=== PATIENT | male | born 1960 | race Caucasian/White ===

== ENCOUNTER 2018-05-10 06:16 | Day surgery (SDC) | payer BC, OTHER ==
[2018-05-10] MEDS ORDERED: LIDOCAINE 2% MDV (20MG/ML) 20ML VIAL IV ONE (06:17)
[2018-05-10] MEDS ORDERED: PROPOFOL 10 MG/ML VIAL IV ONE (06:17)
--- NOTE | 2018-05-14 08:50 | Operative Note ---
DATE OF SURGERY: 05/10/2018 SURGEON: Yisel Fonseca MD OPERATION: COLONOSCOPY. INDICATIONS: This is a 57-year-old male with history of colon polyps who presented for surveillance colonoscopy. POSTOPERATIVE DIAGNOSES: 1. A 3 mm sessile polyp in the rectum that was removed by cold biopsy forceps. 2. Otherwise normal colon and terminal ileal mucosa. ANESTHESIA: Sedation is per Anesthesia. Pulse oximetry was monitored throughout the procedure to maintain O2 saturation of 90% or greater. Supplemental oxygen was administered via nasal cannula. Cardiac and vital signs were monitored throughout the duration of the procedure, and they were stable. The procedure of colonoscopy and risks and alternatives of the procedure, including the risk of bleeding and perforation, among others, were explained to the patient who voiced understanding and agreed to have the procedure done. Physical examination was performed, and the patient was found stable for sedation. PROCEDURE: The patient was placed in the left lateral position. Sedation was initiated. A digital rectal exam was performed and showed some mild external hemorrhoids with no palpable rectal masses. An Olympus PCF-180AL colonoscope was then inserted into the rectum under direct visualization. It was advanced to the cecum without difficulty. The ileocecal valve and appendiceal orifice were identified and photographed. The colonic mucosa was carefully examined upon introduction of the colonoscope. There were no lesions noted. The ileocecal valve was intubated and terminal ileal mucosa was inspected for about 10 cm and it appeared normal. The colonoscope was then withdrawn while carefully examining the colonic mucosal surfaces. No lesions were noted. In the rectum, retroflexion was performed and grade 1 internal hemorrhoids were noted and a 3 mm sessile polyp was noted and was removed by cold biopsy forceps. The colonoscope was then withdrawn and the procedure was terminated. The patient tolerated the procedure well without any immediate complications. The patient remained with stable vital signs and was transferred to the recovery room. RECOMMENDATIONS: 1. The patient should be on a high-fiber diet. 2. The patient is to have a repeat colonoscopy for surveillance in 5 years. Thank you for allowing me to participate in the care of your patient. CC: Dr. Patel HANKS
== END 2018-05-10 08:15 | disposition home or self-care (01) ==
LOC: HOP 06:16
PROVIDERS: ATTEND Internal Medicine Gastroenterology
DX: Z12.11 Encounter for screening for malignant neoplasm of colon (principal); Z86.010 Personal history of colon polyps; K62.1 Rectal polyp; I10 Essential (primary) hypertension; E11.9 Type 2 diabetes mellitus without complications

== ENCOUNTER 2018-11-03 16:33 | Emergency (ER) | payer BC ==
[2018-11-03 17:39] LABS: URINE APPEARANCE CLEAR; URINE BILIRUBIN NEGATIVE (NEGATIVE); URINE BLOOD NEGATIVE (NEGATIVE); URINE COLOR YELLOW; URINE GLUCOSE (UA) NEGATIVE (NEGATIVE); URINE KETONE NEGATIVE (NEGATIVE); URINE LEUKOCYTE ESTERASE NEGATIVE (NEGATIVE); URINE NITRITE NEGATIVE (NEGATIVE); URINE PROTEIN NEGATIVE (NEGATIVE); URINE UROBILINOGEN 0.2 E.U./dL (0.20 - 1.00)
[2018-11-03] MEDS ORDERED: KETOROLAC 30 MG/ML VIAL IM ONE (18:30)
--- NOTE | 2018-11-03 18:30 | Emergency Department Record ---
History of Present Illness - General Chief Complaint: Abdominal Pain Stated Complaint: LOWER RT ABN PAIN Time Seen by Provider: 11/03/18 18:21 Source: Patient Mode of Arrival: Ambulatory Limitations: No limitations - History of Present Illness Initial Comments: The patient is here due to a one week hx of R groin pain. The pain is worse with any movement and bending. He denies any injury or upper AP or testicular issues. The patient has had his GB removed in the past and that is his only abdominal surgery. MD Complaint: Abdominal pain Onset/Timin -: Days(s) Severity: Moderate Severity scale (1-10): 7 Quality: Aching, Cramping Consistency: Constant, Intermittent - Related Data Home Medications Medication Instructions Recorded Confirmed Last Taken Lisinopril 10 mg PO DAILY 11/03/18 11/03/18 1 Day Ago ~11/02/18 Metformin HCl [Glucophage] 1,000 mg PO DAILY 11/03/18 11/03/18 1 Day Ago ~11/02/18 Previous Rx's Medication Instructions Recorded Naproxen [Naprosyn] 500 mg PO BID #14 tablet. 11/03/18 Allergies Allergy/AdvReac Type Severity Reaction Status Date / Time No Known Drug Allergies Allergy Verified 11/03/18 17:01 Travel Screening - Travel/Exposure Within Last 30 Days Have you traveled within the last 30 days?: No - Travel/Exposure Within Last Year Have you traveled outside the [place] in the last year?: No - Additonal Travel Details Have you been exposed to anyone with a communicable illness?: No - Travel Symptoms Symptom Screening: None Review of Systems Constitutional: Denies: Chills, Fever Eyes: Denies: Eye discharge ENT: Denies: Congestion Respiratory: Denies: Cough, Dyspnea Past Medical History - SOCIAL HISTORY Smoking Status: Never smoker Alcohol Use: None Drug Use: None - RESPIRATORY Hx Respiratory Disorders: Yes Hx Sleep Apnea: Yes Hx of CPAP: Yes - CARDIOVASCULAR Hx Cardio Disorders: Yes Hx Hypertension: Yes - NEURO Hx Neuro Disorders: No - GI Hx GI Disorders: No - Hx Genitourinary Disorders: Yes Hx Kidney Stones: Yes - ENDOCRINE Hx Endocrine Disorders: Yes Hx Diabetes: Yes (type II) Hx Thyroid Disease: No - MUSCULOSKELETAL Hx Musculoskeletal Disorders: No - PSYCH Hx Psych Problems: No - HEMATOLOGY/ONCOLOGY Hx Hematology/Oncology Disorders: No Hx Anemia: No Hx Cancer: No Hx Blood Transfusions: No Family Medical History Any Significant Family History?: Yes Hx Cancer: Father, Mother Physical Exam - General General Appearance: Alert, Oriented x3, Cooperative, No acute distress - Head Head exam: Atraumatic - Eye Eye exam: Normal appearance - Neck Neck exam: Normal inspection, Full ROM. negative: Tenderness - Respiratory Respiratory exam: Normal lung sounds bilaterally. negative: Respiratory distress - Cardiovascular Cardiovascular Exam: Regular rate, Normal rhythm, Normal heart sounds - GI/Abdominal GI/Abdominal exam: Soft, Normal bowel sounds, Hernia (There is a palpable R inguinal hernia.). negative: Guarding, Organomegaly, Pulsatile mass, Rebound, Rigid, Tenderness - exam: negative: Scrotal swelling, Testicular tenderness, Urethral discharge - Extremities Extremities exam: Normal inspection, Full ROM, Normal capillary refill. negativ e: Tenderness - Neurological Neurological exam: Alert. negative: Motor sensory deficit Course Vital Signs 11/03/18 16:55 Temperature 97.8 F Pulse Rate 86 Respiratory 20 Rate Blood Pressure 127/76 Pulse Ox 99 - Reevaluation(s) Reevaluation #1: I did discuss the plan with the patient. He is to see Dr. Cordon in the AM tomorrow in the [facility] at 7:30 am. He also is to see his PCP for further evaluation of his anemia and to go over the official CT report. 11/03/18 19:34 Medical Decision Making - Data Complexity MDM Data: Labs Ordered and/or Reviewed, X-Ray Ordered and/or Reviewed - Lab Data Result diagrams: 11/03/18 18:35 11/03/18 18:43 Lab Results 11/03/18 Range/Units 17:20 Urine Color Yellow Urine Appearance Clear Urine pH 5.5 (5.0-8.0) Ur Specific [place] >= 1.030 (1.002-1.030) Urine Protein Negative (NEGATIVE) Urine Glucose (UA) Negative (NEGATIVE) Urine Ketones Negative (NEGATIVE) Urine Blood Negative (NEGATIVE) Urine Nitrite Negative (NEGATIVE) Urine Bilirubin Negative (NEGATIVE) Urine Urobilinogen 0.2 (0.20 - 1.00) E.U./dL Ur Leukocyte Esterase Negative (NEGATIVE) - Radiology Data Radiology results: Report reviewed (CT: Bilateral inguianal hernias with fat. L sided hydro to UVJ, etiology ?) Disposition Disposition: Discharge Clinical Impression: Inguinal hernia Qualifiers: Obstruction and gangrene presence: without obstruction or gangrene Laterality: bilateral Recurrence: non-recurrent Qualified Code(s): K40.20 - Bilateral inguinal hernia, without obstruction or gangrene, not specified as recurrent Disposition: Home, Self-Care Condition: (2) Stable Instructions: Abdominal Pain (ED) Additional Instructions: Please see Dr. Cordon in the Am at 7:30 in the Specialty clinic. Take Naprosyn for pain. Also see your family doctor also for further evaluation of the anemia and to go over the official CT report. Prescriptions: Naproxen [Naprosyn] 500 mg PO BID #14 tablet. Referrals: [facility] [Provider Group] Forms: Patient Portal Access Time of Disposition: 19:37 Quality - Quality Measures Quality Measures: N/A - Blood Pressure Screening View Details: Yes Does Patient Have Any of the Following: No Blood Pressure Classification: Pre-Hypertensive BP Reading Systolic Measurement: 127 Diastolic Measurement: 76 Screening for High Blood Pressure: < Pre-Hypertensive BP, F/U Documented > [G8950] Pre-Hypertensive Follow-up Interventions: Referral to alternative/primary care provider.
[2018-11-03 18:48] LABS: ABSOLUTE NEUTROPHIL COUNT 2.96; BASO % 0.7 % (0-6); EOS % 4.2 % (0-6); GRAN % 52.4 % (47-80); HEMATOCRIT 37.2 % (42.0-52.0); HEMOGLOBIN 12.7 gm/dl (14.0-18.0); LYMPH % 32.4 % (16-45); MEAN CELL VOLUME 92.3 fl (81-97); MEAN CORPUSCULAR HEMOGLOBIN 31.5 pg (27-33); MEAN CORPUSCULAR HGB CONC 34.1 g/dl (32-36); MEAN PLATELET VOLUME 10.3 fl (7.4-10.4); MONO % 10.3 % (0-9); PLATELET COUNT 201 K/uL (130-400); RED BLOOD COUNT 4.03 M/uL (4.40-5.70); RED CELL DISTRIBUTION WIDTH 12.5 % (11.5-14.5); WHITE BLOOD COUNT W/O DIFF 5.7 K/uL (4.2-12.2)
[2018-11-03 18:57] LABS: BLOOD UREA NITROGEN 17 mg/dL (6-20); EST GLOMERULAR FILTRATION RATE > 60 mL/min
[2018-11-03 18:58] LABS: TOTAL PROTEIN 6.4 g/dL (6.6-8.7)
[2018-11-03 19:00] LABS: GLUCOSE,RANDOM 155 mg/dL (74-109)
[2018-11-03 19:02] LABS: ALT/SGPT 34 U/L (<41)
[2018-11-03 19:03] LABS: ALB/GLOB RATIO 1.9 (1.1-1.8); ALBUMIN 4.2 g/dL (4.0-5.0); ALKALINE PHOSPHATASE 72 U/L (40-129); AST/SGOT 23 U/L (10.0-50.0)
--- NOTE | 2018-11-05 14:16 | CT SCAN REPORT ---
EXAM: CT OF THE ABDOMEN AND PELVIS WITHOUT CONTRAST HISTORY: RIGHT GROIN PAIN. TECHNIQUE: Without administration of intravenous contrast, contiguous axial sections were obtained through the abdomen and pelvis. Coronal and sagittal reformats. Comparison: 05/16/14. FINDINGS: A focus of bronchiectasis continues at the medial aspect of the right lower lobe. The visualized lung bases otherwise are clear. No free air evident within the abdomen or pelvis. Noncontrast technique limits evaluation of the solid organs. There is mild left hydronephrosis present. No renal, ureteral, or bladder stone evident. There are small bilateral inguinal hernias containing fat only. The visualized portions of the solid organs otherwise appear grossly unremarkable as seen. The gallbladder appears absent. The GI tract is nondilated. The appendix appears normal. The stomach is distended with debris. Hazy opacification about the small bowel mesentery with scattered nonenlarged lymph nodes appears mildly more prominent than the prior examination. No mesenteric adenopathy otherwise evident. No abdominal aortic aneurysm. Evaluation of the vasculature otherwise limited. No retroperitoneal adenopathy. There are degenerative changes of the spine, sacroiliac joints, and hips. IMPRESSION: 1. THERE IS MILD LEFT HYDRONEPHROSIS. THIS APPEARS TO EXTEND TO THE URETERAL PELVIC JUNCTION. NO RENAL, URETERAL OR BLADDER STONE EVIDENT. THIS MAY REPRESENT A UPJ OBSTRUCTION. UROLOGIC CONSULTATION RECOMMENDED. 2. SMALL BILATERAL INGUINAL HERNIAS CONTAINING FAT ONLY. 3. HAZY OPACIFICATION ABOUT THE SMALL BOWEL MESENTERY MAY REPRESENT SEQUELA OF MESENTERIC PANNICULITIS. 4. ADDITIONAL FINDINGS ABOVE. 5. THE ER PHYSICIAN WAS NOTIFIED BY VOICE CLIP. JOB NUMBER: [id number] MTDD
== END 2018-11-03 19:54 | disposition home or self-care (01) ==
LOC: ER 16:33
DX: K40.20 Bilateral inguinal hernia, without obstruction or gangrene, not specified as recurrent (principal); I10 Essential (primary) hypertension
CPT/HCPCS: 74176; 80053; 81003; 85025; 96372; 99284; J1885